=== PATIENT | male | born 1950 | race Native Hawaiian/Other Pacific Islander ===

== ENCOUNTER 2018-09-26 04:50 | Emergency (ER) | payer OTHER ==
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
[2018-09-26 05:21] VITALS: RESP 18; O2SAT 98; BMI 30.5
[2018-09-26 06:04] VITALS: BP 152/78; PULSE 82; TEMP 97.8
--- NOTE | 2018-09-26 09:24 | CARD ---
APPROVED REPORT Date of service: 09/26/2018 EKG Measurement Heart [id number] ID [id number] <Conclusion> Normal sinus rhythm Right bundle branch block Left anterior fascicular block Bifascicular block Abnormal ECG
--- NOTE | 2018-09-26 11:04 | RAD ---
Date of service: 09/26/2018 HISTORY: Shortness of breath COMPARISON: None FINDINGS: LUNGS: The lungs are well inflated and clear. PLEURA: No pleural effusions or pneumothorax. CARDIOVASCULAR: The heart is normal in size. No aortic atherosclerotic calcifications present. OSSEOUS STRUCTURES: Within normal limits for the patient's age. VISUALIZED UPPER ABDOMEN: Normal. OTHER FINDINGS: None. IMPRESSION: No active pulmonary disease.
== END 2018-09-26 06:06 | disposition home or self-care (01) ==
LOC: ED 04:50
DX: R07.89 Other chest pain (principal); Y08.89XA Assault by other specified means, initial encounter; Y92.238 Other place in hospital as the place of occurrence of the external cause; Y99.0 Civilian activity done for income or pay